=== PATIENT | male | born 1985 | race Caucasian/White ===

== ENCOUNTER 2019-02-09 07:08 | Emergency (ER) | payer SELFPAY ==
[2019-02-09] MEDS ORDERED: Dexamethasone 10 MG/ML VIAL ONE (08:15)
== END 2019-02-09 08:32 | disposition home or self-care (01) ==
LOC: ERS 07:08
DX: M54.5 Low back pain (principal); G89.29 Other chronic pain; F17.210 Nicotine dependence, cigarettes, uncomplicated
CPT/HCPCS: 99283; J1100